=== PATIENT | female | born 2000 | race Caucasian/White ===

== ENCOUNTER → 2020-10-28 16:27 | Outpatient (BNVA) | payer MEDICAID, SELFPAY | PROVIDERS: Visit Provider Emergency Medicine | DX: R10.9 Unspecified abdominal pain (principal); Z23 Encounter for immunization | CPT/HCPCS: 80053; 81000; 83690; 85025 ==

== ENCOUNTER → 2021-01-28 12:15 | Outpatient (BNVA) | payer MEDICAID, SELFPAY | PROVIDERS: Visit Provider Emergency Medicine | DX: Z20.822 Contact with and (suspected) exposure to COVID-19 (principal); Z20.828 Contact with and (suspected) exposure to other viral communicable diseases | CPT/HCPCS: 87635 ==